=== PATIENT | female | born 1945 | race Caucasian/White ===

== ENCOUNTER → 2018-11-08 | Outpatient (CLI) | payer MEDICARE, OTHER ==
[~2018-11-08] MED LIST: CHOL10005 PO; FLU IM; FLU180SY11 IM; FLU45SYR17 IM; MULT-27 PO; MULT-865 PO; PNEU0.5D3 IM; TOBROD OD
== END ==
LOC: AUD 14:00
PROVIDERS: ATTEND Otolaryngology
DX: H69.80 Other specified disorders of Eustachian tube, unspecified ear (principal)
CPT/HCPCS: 92567